=== PATIENT | female | born 1975 | race Caucasian/White ===

== ENCOUNTER 2019-07-08 12:39 | Outpatient (CLI) | payer BC, SELFPAY ==
--- NOTE | ~2019-07-08 | MM_ITS ---
EXAMINATION: MM diagnostic mary LT w vikki HISTORY: Six-month follow-up for probably benign left breast asymmetry TECHNIQUE: Craniocaudal, mediolateral, and mediolateral oblique 3-D tomosynthesis images of the left breast were performed and synthetic 2-D images were generated. And spot compression views are also ob tained. CAD analysis was submitted and interpreted. COMPARISON: 12/17/2018, 12/09/2018, 07/05/2017 BREAST PARENCHYMAL COMPOSITION: There are scattered areas of fibroglandular density. FINDINGS: There is a stable focal asymmetry in the far posterior third of the breast at the 12:00 loc ation. There is been no suspicious interval change. No suspicious calcification or architectural dist ortion are identified. IMPRESSION: 1. Probably benign focal asymmetry of the left breast. 2. Recommend 6 month follow-up left diagnostic mammogram with possible ultrasound BI-RADS category 3, probably benign findings. Reviewed, dictated and finalized at location A. IMPRESSION: 1. Probably benign focal asymmetry of the left breast. 2. Recommend 6 month follow-up left diagnostic mammogram with possible ultrasou nd BI-RADS category 3, probably benign findings.
== END 2019-07-08 12:40 | disposition home or self-care (01) ==
LOC: ANHIMG 12:40
PROVIDERS: PCP Family Medicine; Visit Provider Family Medicine
DX: R92.8 Other abnormal and inconclusive findings on diagnostic imaging of breast (principal)
CPT/HCPCS: 77061; 77065; G0279

== ENCOUNTER 2020-01-31 12:31 | Outpatient (CLI) | payer BC, SELFPAY ==
--- NOTE | ~2020-01-31 | MMUS_ITS ---
EXAMINATION: MM diagnostic mary LT w vikki, US breast LT limited HISTORY: Six-month follow-up for probably benign left breast asymmetry TECHNIQUE: Craniocaudal, mediolateral, and mediolateral oblique 3-D tomosynthesis images of the left breast were performed and synthetic 2-D images were generated. CAD analysis was submitted and interpr eted. High resolution limited left breast ultrasound was performed. COMPARISON: 07/08/2019, 12/17/2018, 12/09/2018, 06/25/2017 BREAST PARENCHYMAL COMPOSITION: There are scattered areas of fibroglandular density. FINDINGS: MAMMOGRAPHIC FINDINGS: There is a stable focal asymmetry in the far posterior third of the breast at the 12:00 location 10 c m from the nipple. There has been no suspicious interval change. No associated calcification or archi tectural distortion are identified. ULTRASOUND: There is no evidence of focal abnormal solid or cystic lesion in the vicinity of the mammographic fin ding in question. IMPRESSION: 1. Stable focal asymmetry of the left breast. 2. Given one year of interval stability, recommend 12 month followup left diagnostic mammogram and po ssible ultrasound. BI-RADS category 3, probably benign findings. Reviewed, dictated and finalized at location A. ACOUSTIC OPERATOR IMPRESSION: 1. Stable focal asymmetry of the left breast. 2. Given one year of interval stability, recommend 12 month followup left diagn ostic mammogram and possible ultrasound. BI-RADS category 3, probably benign findings.
== END 2020-01-31 12:32 | disposition home or self-care (01) ==
LOC: ANHIMG 12:32
PROVIDERS: PCP Family Medicine; Visit Provider Family Medicine
DX: N63.25 Unspecified lump in the left breast, overlapping quadrants (principal)
CPT/HCPCS: 76642; 77061; 77065; G0279

== ENCOUNTER 2021-08-14 09:21 | Outpatient (CLI) | payer BC, SELFPAY ==
--- NOTE | ~2021-08-14 | MM_ITS ---
EXAMINATION: MM screening mary BI w vikki HISTORY: Screening mammogram TECHNIQUE: Craniocaudal and mediolateral oblique 3-D tomosynthesis images were obtained and synthetic 2-D images were generated. CAD analysis was submitted and interpreted. COMPARISON: 01/31/2020 diagnostic left mammogram and left breast ultrasound 07/08/2019 diagnostic left mammogram 12/17/2018 diagnostic left mammogram and limited left breast ultrasound 12/09/2018, 06/25/2017 bilateral diagnostic mammogram BREAST PARENCHYMAL COMPOSITION: There are scattered areas of fibroglandular density. FINDINGS: There is stable mild fibroglandular asymmetry since 01/31/2020. There is no evidence of susp icious mass, calcification, or architectural distortion to suggest malignancy in either breast. There has been no suspicious interval change. IMPRESSION: 1. No mammographic evidence of malignancy. 2. Recommend routine screening mammography in one year. BI-RADS Category 2: Benign finding(s). Reviewed, dictated and finalized at location A.
== END 2021-08-14 09:22 | disposition home or self-care (01) ==
LOC: ANHIMG 09:23
PROVIDERS: PCP Family Medicine; Visit Provider Student in an Organized Health Care Education/Training Program
DX: Z12.31 Encounter for screening mammogram for malignant neoplasm of breast (principal)
CPT/HCPCS: 77063; 77067

== ENCOUNTER 2023-01-08 09:06 | Outpatient (CLI) | payer BC, SELFPAY ==
--- NOTE | ~2023-01-08 | MM_ITS ---
EXAMINATION: MM screening [facility] BI w vikki HISTORY: Screening TECHNIQUE: Craniocaudal and mediolateral oblique 3-D tomosynthesis images were obtained and synthetic 2-D images were generated. CAD analysis was submitted and interpreted. COMPARISON: Comparison to multiple prior studies sequentially, with oldest reviewed study dated 06/2017. BREAST PARENCHYMAL COMPOSITION: There are scattered areas of fibroglandular density. FINDINGS: There is no evidence of suspicious mass, calcification, or architectural distortion to sugg est malignancy in either breast. There has been no suspicious interval change. IMPRESSION: 1. No mammographic evidence of malignancy. 2. Recommend routine screening mammography in one year. BI-RADS Category 1: Negative Reviewed, dictated and finalized at location A.
== END 2023-01-08 09:07 | disposition home or self-care (01) ==
LOC: CHSIMG 09:07
PROVIDERS: PCP Family Medicine; Visit Provider Obstetrics & Gynecology
DX: Z12.31 Encounter for screening mammogram for malignant neoplasm of breast (principal)
CPT/HCPCS: 77063; 77067

== ENCOUNTER 2023-09-18 06:15 | Day surgery (SDC) | payer OTHER, SELFPAY ==
[2023-06-25 15:12] VITALS: BMI 25.5
[2023-09-10 13:05] VITALS: BMI 26.1
--- NOTE | 2023-09-17 14:08 | P.PNAN_ITS ---
Anes - Initial Pre Proc Eval Procedure: Operation Date: 09/18/23 08:00 Proposed Procedures p Screening Colonoscopy - Khoi Murrieta MD Date/Time: 09/17/23 14:08 Surgeon: Khoi Murrieta MD Pre Op Diagnosis: Screening for neoplasm of colon Patient Data Age: 47 Gender: F Height: 1.63 m Weight: 69 kg Allergies Allergy/AdvReac Type Severity Reaction Status Date / Time No Known Allergies Allergy Verified 09/18/23 06:31 Home Medications Medication Instructions Recorded Confirmed Type multivitamin 1 tablet PO DAILY 09/20/19 09/18/23 History drospirenone (contraceptive) 4 mg 1 tablet PO DAILY #84 tabs 04/08/23 09/18/23 Rx (28) tablet (Slynd) Patient hx anesthesia problems: none Family hx anesthesia problems: none Results Review: All pre-operative results and documents have been reviewed as part of the pre- operative evaluation. [facility] Past Medical History Medical History Abnormal mammogram of left breast Vaginal delivery x 2 Family History Family History Grandparent Family history of elevated blood lipids Family history of coronary artery disease, Onset Age: 94 Family history of thyroid disease Mother Family history of thyroid disease Afib Social History Social History Smoking status: Former smoker Second hand tobacco smoke exposure: No Smoking end date: 03/24/07 Alcohol intake: current Alcohol use details: 1-2 bottles of wine per week Substance use: never Substance use type: does not use Lack of Transportation: No Lack of Food: Never True Current Housing: I Have Housing Concerned About Future Housing: No Difficulty Paying Gas/Electric Bills: No Difficulty Paying for Meds: No Currently Unemployed: No Education: Trade/Vocational Certificate Difficulty w/ Childcare or Family Care: No Living arrangements: with family Occupation/Education: occupation Gender identity (if verbalized by the patient): Female Sexual Orientation (if Verbalized by the Patient): Straight or Heterosexual Anes - Eval Final PreProcedure Day of Procedure 09/17/23 14:08 Patient weight: overweight Heart: regular rate and rhythm Lungs: clear to auscultation Airway: Mallampati scale class II Neurological: alert and oriented Last oral intake: >/= 8 hours ASA classification: II Emergent: no Anesthetic plan: proceed Anesthesia type and monitoring: general GIVS and standard monitoring Results Review: All pre-operative results and documents have been reviewed as part of the pre- operative evaluation. Informed Consent: The patient's anesthetic plan and its attendant risks and benefits were discussed with the patient/family/POA. Questions were solicited and answers provided to the satisfaction of the patient/family/POA.
[2023-09-18 06:33] VITALS: BMI 25.4
[2023-09-18 06:34] VITALS: BP 107/74; PULSE 86; RESP 16; TEMP 36.8; O2SAT 100
[2023-09-18] MEDS: LACTATED RINGERS 1,000 ML 150 ML IV CONT (06:46)
--- NOTE | 2023-09-18 07:25 | PM.HPGS ---
History of Present Illness History of Present Illness Consent: Risks, benefits, and alternatives have been discussed and questions answered. Patient agrees to proceed with procedure. Chief complaint: Screening for neoplasm of colon Narrative: Jacqueline Cesar is a 47 year old female presents for screening colonoscopy. Patient's current weight appetite and bowel movements are normal. She denies abdominal pain. Patient has had no bleeding. Family history is noncontributory. Review of Systems Review of Systems: All systems reviewed & are unremarkable except as noted in HPI and below PMFSH Past Medical History Medical History Abnormal mammogram of left breast Vaginal delivery x 2 Family History Family History Grandparent Family history of elevated blood lipids Family history of coronary artery disease, Onset Age: 94 Family history of thyroid disease Mother Family history of thyroid disease Afib Social History Social History Smoking status: Former smoker Second hand tobacco smoke exposure: No Smoking end date: 03/24/07 Alcohol intake: current Alcohol use details: 1-2 bottles of wine per week Substance use: never Substance use type: does not use Lack of Transportation: No Lack of Food: Never True Current Housing: I Have Housing Concerned About Future Housing: No Difficulty Paying Gas/Electric Bills: No Difficulty Paying for Meds: No Currently Unemployed: No Education: Trade/Vocational Certificate Difficulty w/ Childcare or Family Care: No Living arrangements: with family Occupation/Education: occupation Gender identity (if verbalized by the patient): Female Sexual Orientation (if Verbalized by the Patient): Straight or Heterosexual Meds Home Medications and Allergies Home Medications Medication Instructions Recorded Confirmed Type multivitamin 1 tablet PO DAILY 09/20/19 09/18/23 History drospirenone (contraceptive) 4 mg 1 tablet PO DAILY #84 tabs 04/08/23 09/18/23 Rx (28) tablet (Slynd) Allergies Allergy/AdvReac Type Severity Reaction Status Date / Time No Known Allergies Allergy Verified 09/18/23 06:31 Vital Signs Vital Signs - 24 hr 09/18/23 06:34 Temperature 98.3 F Pulse Rate 86 Respiratory Rate 16 Blood Pressure 107/74 Pulse Oximetry 100 Oxygen Delivery Room Air Exam Narrative: Physical exam reveals patient to be alert. Signs stable. HEENT exam is unremarkable. Is anicteric. Lungs are clear to auscultation and heart is without murmur or extra sounds. Abdomen bowel sounds are present soft nontender with no organomegaly. Digital external rectal exam is normal. Assessment and Plan Assessment and plan (1) Screen for colon cancer: Code(s): Z12.11 - Encounter for screening for malignant neoplasm of colon Status: Acute Assessment and Plan: Patient presents for screening colon cancer screening colonoscopy today. Further recommendations to be given after endoscopy.
[2023-09-18 08:11] VITALS: BP 104/75; PULSE 77; RESP 16; O2SAT 98
[2023-09-18 08:21] VITALS: BP 114/74; PULSE 54; RESP 16; O2SAT 99
[2023-09-18 08:31] VITALS: BP 119/79; PULSE 57; RESP 16; O2SAT 100
--- NOTE | 2023-09-18 10:53 | WPDANESPN ---
Anes - Prog Note Post-Op Date/Time: 09/18/23 10:53 Cardiovascular status: normal Respiratory status: normal Airway patency: baseline Mental status: baseline Post-Op hydration status: normal Vital Signs: Last Vital Signs Temp 36.8 C 09/18/23 06:34 Pulse 57 L 09/18/23 08:31 Resp 16 09/18/23 08:31 BP 119/79 09/18/23 08:31 Pulse Ox 100 09/18/23 08:31 O2 Del Method Room Air 09/18/23 08:31 Pain Score (VAS): 0 I/O: Intake & Output 09/17/23 09/18/23 09/18/23 23:59 07:59 15:59 Intake Total 500 Balance 500 Post-procedural complaints: none Patient Feedback: Patient satisfied with anesthetic care. Other Findings: Patient vital signs back to baseline. Patient denies nausea and vomiting. Patient's pain under control. Patient OK for discharge.
== END 2023-09-18 08:40 | disposition home or self-care (01) ==
PROVIDERS: PCP Family Medicine; Visit Provider Internal Medicine Gastroenterology
PROC: 0DJD8ZZ Inspection of Lower Intestinal Tract, Via Natural or Artificial Opening Endoscopic (ICD-10-PCS; CPT 45378; principal; 2023-09-18 08:00)
DX: Z12.11 Encounter for screening for malignant neoplasm of colon (principal)
CPT/HCPCS: 45378

== ENCOUNTER 2024-05-03 13:49 | Outpatient (CLI) | payer OTHER, SELFPAY ==
--- NOTE | ~2024-05-03 | MM_ITS ---
EXAMINATION: MM screening mary BI w vikki HISTORY: Screening TECHNIQUE: Craniocaudal and mediolateral oblique 3-D tomosynthesis images were obtained and synthetic 2-D images were generated. CAD analysis was submitted and interpreted. COMPARISON: Comparison to multiple prior studies sequentially, with oldest reviewed study dated 12/09. BREAST PARENCHYMAL COMPOSITION: Not dense: There are scattered areas of fibroglandular density. FINDINGS: There is no evidence of suspicious mass, calcification, or architectural distortion to sugg est malignancy in either breast. There has been no suspicious interval change. IMPRESSION: 1. No mammographic evidence of malignancy. 2. Recommend routine screening mammography in one year. BI-RADS Category 1: Negative Reviewed, dictated and finalized at location B. [employer]
--- OUTSIDE RECORDS SUMMARY | 2024-05-03 14:02 | XMS_ITS | Clinical Summary ---
Author Organization [facility] Address [address] [place] [address] Care Team Providers Care Dermatological Surgeon Name Role Phone Claude Tipton MD Primary Care Provider [phone] Source Comments [facility],non-owned Affiliates and Associated Physician Practices is amultiple site organization consisting of ambulatory clinics and hospital sitesin [place], [place], [place] and [place]. This disclosure is being madepursuant to the Care Everywhere program and may not contain all information available regarding this patient. Last updated 17.[facility] Allergies No known active allergies Medications * Be aware that medications may not be up to date on this document. Alwaysverify current medications with the patient. Medication Sig Dispensed Refills Start Date End Date Status Norethin-Eth Estrad-Fe Biphas (LO LOESTRIN FE PO) Active Social History Tobacco Use Types Packs/Day Years Used Date Smoking Tobacco: Former Cigarettes Q uit: 03/24/2008 Smokeless Tobacco: Never Sex and Gender Information Value Date Recorded Sex Assigned at Not on file Gender Identity Female 11/08/2016 12:05 PM CDT Sexual Orientation Not on file Last Filed Vital Signs Vital Sign Reading Time Taken Comments Blood Pressure 118/80 11/08/2016 12:06 PM CDT Pulse 81 11/08/2016 12:06 PM CDT Temperature 36.7 C (98.1 F) 11/08/2016 12:06 PM CDT Respiratory Rate 18 11/08/2016 12:06 PM CDT Oxygen Saturation 98% 11/08/2016 12:06 PM CDT Inhaled Oxygen Concentration - - Weight 65.3 kg (144 lb) 11/08/2016 12:06 PM CDT Height 162.6 cm (5' 4 ) 11/08/2016 12:06 PM CDT Body Mass Index 24.72 11/08/2016 12:06 PM CDT Plan of Treatment Health Maintenance Due Date Last Done Comments COLOGUARD (AGES 45-75) - COL ON CA SCREENING 1977 COLON MONITORING 1977 COLONOSCOPY - COLON CA SCREENING 1977 CT COLONOGRAPHY - COLON CA SCREENING 1977 Colorectal Cancer Screening 1977 FIT - COLON CA SCREENING 1977 FLEX SIG - COLON CA SCREENING 1977 LIPID TESTING 1977 MAMMOGRAM 1977 PAP SMEAR 1977 HIV SCREENING 1992 HEPATITIS C SCREENING 10/05/1995 DTAP/TDAP/TD VACCINES (1 - Tdap) 1996 HEPATITIS B VACCINE (1 of 3 - 19+ 3-dose series) 1996 COVID-19 VACCINE ( - 2023-2 5 season) 2023 INFLUENZA VACCINE (#1) 2023 DEPRESSION SCREENING 03/24/2024 ZOSTER VACCINE (1 of 2) 10/10/2027 HIB VACCINE Aged Out No longer eligi ble based on patient's age to complete this topic HPV VACCINE Aged Out No longer eligi ble based on patient's age to complete this topic MENINGOCOCCAL (Group B) VACCINE Aged Out No longer eligible based on patient's age to complete this topic MENINGOCOCCAL VACCINE Aged Out No jose susanna eligible based on patient's age to complete this topic PNEUMOCOCCAL VACCINE Aged Out No long er eligible based on patient's age to complete this topic Care Teams Dermatological Surgeon Relationship Specialty Start Date End Date Claude Tipton MD [address] [place] [address] PCP - General Family Medicine 11/08/16
--- OUTSIDE RECORDS SUMMARY | 2024-05-03 14:02 | XMS_ITS | Clinical Summary ---
Author Organization [facility] Address [address] [place] [address] Phone Care Team Providers Care Medical Pathology Teacher Name Role Phone Claude Tipton MD Primary Care Provider [phone] Allergies No known active allergies Medications LO LOESTRIN FE 1 mg-10 mcg (24)/10 mcg (2) TabletIndication s:Elevated AST (SGOT) Take 10 mcg by mouth daily. 08/11/2015 Active multivitamin (DAILY-OSWALDO) tabletIndication s:Elevated AST (SGOT) Take 1 Tablet by mouth daily. Active Active Problems Problem Noted Date Diagnosed Date Elevated AST (SGOT) 11/05/2015 Family History Medical History Relation Name Comments Healthy Mother Relation Name Status Comments Mother Social History Tobacco Use Types Packs/Day Years Used Date Smoking Tobacco: Former Comments:quit at age 32 Alcohol Use Standard Drinks/Week Comments Yes 0 (1 standard drink = 0.6 oz pur e alcohol) socially Comments Unknown Sex and Gender Information Value Date Recorded Sex Assigned at Not on file Legal Sex Female 4:04 PM CDT Gender Identity Not on file Sexual Orientation Not on file Last Filed Vital Signs Vital Sign Reading Time Taken Comments Blood Pressure 121/82 10/30/2015 10:53 AM CDT Pulse 63 10/30/2015 10:53 AM CDT Temperature - - Respiratory Rate - - Oxygen Saturation - - Inhaled Oxygen Concentration - - Weight 65.9 kg (145 lb 3.2 oz) 10/30/2015 10:53 AM CDT Height 162.6 cm (5' 4 ) 10/30/2015 10:53 AM CDT Body Mass Index 24.92 10/30/2015 10:53 AM CDT Plan of Treatment Health Maintenance Due Date Last Done Comments DTAP/TDAP/TD VACCINES (1 - Tdap) 1996 HEPATITIS B VACCINES (1 of 3 - 19+ 3-dose series) 1996 CERVICAL CANCER SCREENING 10/10/2007 BREAST CANCER SCREENING 2017 COLORECTAL SCREENING 2022 Colorectal Cancer Screening 2022 FIT-DNA Q 3 years 2022 FIT/FOBT Q 1 year 2022 Flex Sig/CT Colonography Q 5 years 2022 INFLUENZA VACCINE (#1) 2023 HPV VACCINES Aged Out No longer eligi ble based on patient's age to complete this topic PNEUMOCOCCAL VACCINE 0-64 YEARS Aged Out No longer eligible based on patient's age to complete this topic Insurance [place] [id number] Care Teams Medical Pathology Teacher Relationship Specialty Start Date End Date Claude Tipton MD [address] [place] [address] PCP - General Family Practice 10/02/15
--- OUTSIDE RECORDS SUMMARY | 2024-05-03 14:02 | XMS_ITS | Patient Health Summary ---
Author Organization [facility] [email or web address] Address [address] [place] [address] Care Team Providers Care Claim Auditor Name Role Phone Claude Tipton MD Primary Care Provider [phone] Note from [facility],non-owned Affiliates and Associated Physician Practices is amultiple site organization consisting of ambulatory clinics and hospital sitesin [place], [place], [place] and [place]. This disclosure is being madepursuant to the Care Everywhere program and may not contain all information available regarding this patient. Last updated 17.[facility] [email or web address] Allergies No known active allergies Medications * Be aware that medications may not be up to date on this document. Alwaysverify current medications with the patient. * Norethin-Eth Estrad-Fe Biphas (LO LOESTRIN FE PO) Social History Tobacco Use Types Packs/Day Years [...] Mass Index 24.72 11/08/2016 12:06 PM CDT Procedures * STREP A SCREEN - POINT OF CARE (AMB) STL(Performed 11/08/2016) Performed for Strep throat Results * (ABNORMAL) STREP A SCREEN - POINT OF CARE (AMB) STL (11/08/2016 12:16 PM CDT) Strep A Rapid POCT Positive(A) Negative Strep A Internal Control Present Lot # [id number] Expiration Date [id number] Throat ENTIRE THROAT (SURFACE REGION OF NECK) / Unknown 11/08/2016 12:16 PM CDT Johnna Ogden [facility] - POINT OF C ARE ORDERABLES Care Teams Claim Auditor Relationship Specialty Start Date End Date Claude Tipton MD [address] [place] [address] PCP - General Family Medicine 11/08/16
--- OUTSIDE RECORDS SUMMARY | 2024-05-03 14:02 | XMS_ITS | Referral Summary ---
Author Organization [facility] Address [address] [place] [address] Care Team Providers Care Shift Commander Name Role Phone Claude Tipton MD Primary Care Provider [phone] Source Comments [facility] [employer],non-owned Affiliates and Associated Physician Practices is amultiple site organization consisting of ambulatory clinics and hospital sitesin [place], [place], [place] and [place]. This disclosure is being madepursuant to the Care Everywhere program and may not contain all information available regarding this patient. Last updated 17.[facility] Allergies No known active allergies Medications * [...] 11/08/2016 12:06 PM CDT Plan of Treatment Not on file Care Teams Shift Commander Relationship Specialty Start Date End Date Claude Tipton MD [address] [place] [address] PCP - General Family Medicine 11/08/16
--- OUTSIDE RECORDS SUMMARY | 2024-05-03 14:02 | XMS_ITS | Clinical Summary ---
Author Organization [facility] Address [address] [place] [address] Phone Care Team Providers Care Greens Keeper Name Role Phone Unavailable Primary Care Provider Unavailabl e Social History Tobacco Use Types Packs/Day Years Used Date Smoking Tobacco: Never Assessed Comments Unknown Sex and Gender Information Value Date Recorded Sex Assigned at Not on file Legal Sex Female 4:22 PM CDT Gender Identity Not on file Sexual Orientation Not on file Plan of Treatment Health Maintenance Due Date Last Done Comments Hepatitis C Virus (HCV) Screening 1977 TdaP Immunization 1977 Hepatitis B Immunization (1 of 3 - 19+ 3-dose series) 1996 Pap Smear 1998 Cervical Cancer Screening (CCS) 10/10/2007 HPV/Cotest 10/10/2007 Discussion re Starting/Frequ ency of Mammograms 2017 Colonoscopy 2022 Colorectal Cancer Screening 2022 Influenza Immunization (#1) 2023 SARS-COV-2 Immunization ( season) 2023 Respiratory Syncytial Virus (RSV) Immunization (Adult) (1 - 1-dose 75+ series) 2052 Meningococcal Immunization (ACWY) Aged Out No longer eligible based on patient's age to complete this topic Pneumococcal Immunization Combined Aged Out No longer eligible based on patient's age to complete this topic Rotavirus Immunization Aged Out No lo nger eligible based on patient's age to complete this topic
== END 2024-05-03 13:50 | disposition home or self-care (01) ==
LOC: CHSIMG 13:50
PROVIDERS: PCP Family Medicine; Visit Provider Obstetrics & Gynecology
DX: Z12.31 Encounter for screening mammogram for malignant neoplasm of breast (principal)
CPT/HCPCS: 77063; 77067